=== PATIENT | male | born 1965 | race Caucasian/White ===

== ENCOUNTER 2025-01-04 03:59 | Emergency (ER) | payer OTHER ==
[~2025-01-04] VITALS: Ht 180.3 cm; Wt 102.1 kg
--- NOTE | 2025-01-04 04:22 | ERN ---
General Chief Complaint: Elbow Problem Stated Complaint: RT ELBOW PAIN, PMH GOUT Time Seen by MD: 04:03 History of Present Illness Initial Comments 59-year-old male with a history of hypertension and hypercholesterolemia comes in with an extremely tender erythematous and warm right elbow. He has a history of gout. He states two days ago he was experiencing some gout and a prescription was sent to an [facility] pharmacy in [place] for him. He does not remember the specific medications that were prescribed. He did not crab picker his prescriptions but came here to [place] to visit family. Unfortunately he thinks he is experiencing a gouty flare in his right elbow. Allergies: Coded Allergies: ibuprofen (Unverified Allergy, Unknown, 01/04/25) Past Medical History Past Medical History: High Cholesterol, Hypertension, Other Medical History Other: GOUT Past Surgical History: Other Surgical History Other: RT HIP, LEFT KNEE Constitutional: (-) chills, (-) diaphoresis, (-) fever, (-) malaise, (-) weakness, (-) other documentation EENTM: (-) eye pain, (-) blurred vision, (-) tearing, (-) double vision, (-) ea r pain, (-) ear discharge, (-) nose pain, (-) nose congestion, (-) throat pain, (-) Throat swelling, (-) mouth pain, (-) tooth pain, (-) mouth swelling, (-) other documentation Respiratory: (-) cough, (-) orthopnea, (-) short of breath, (-) stridor, (-) wheezing, (-) other documentation Cardiovascular: (-) chest pain, (-) edema, (-) palpitations, (-) syncope, (-) dyspnea on exertion, (-) other documentation Gastrointestinal/Abdominal: (-) nausea, (-) vomiting, (-) diarrhea, (-) abdominal pain, (-) abdominal distention, (-) constipation, (-) rectal bleeding, (-) dark stool/melena, (-) other documentation Genitourinary: (-) penile discharge, (-) dysuria, (-) frequency, (-) hematuria, (-) pain, (-) other documentation Musculoskeletal: (-) Neck pain, (-) back pain, (-) Flank Pain, (-) joint pain, (-) joint swelling, (-) muscle pain, (-) muscle stiffness, (-) gout, (-) other documentation Skin: (-) laceration, (-) contusion, (-) abrasion, (-) abscess, (-) rash, (-) change in color, (-) change in hair, (-) change in nails, (-) diaphoresis, (-) dryness, (-) other documentation Physical Exam General Appearance: (+) mild distress Orientation: (+) alert, (+) oriented x 3 Head/Face Trauma: No Eye: bilateral eye normal inspection, bilateral eye PERRL, bilateral eye EOMI Ear, Nose, Throat: (+) hearing grossly normal, (+) normal ENT inspection, (+) moist mucous membraine Neck: (+) normal inspection, (+) supple, (+) full range of motion Respiratory: (+) chest non-tender, (+) lungs clear, (+) well ventilated Heart: (+) regular, (+) no gallop Vascular: (+) no edema, (+) normal peripheral pulse Gastrointestinal: (+) soft, (+) non-tender, (+) bowel sound present Extremities Comment Patient's right elbow is erythematous warm slightly swollen and very very tender. Distal neurovascular intact. Results Laboratory and Microbiology Lab and Micro Result Laboratory Tests Test 01/04/25 04:38 Uric Acid 9.7 mg/dL (2.6-7.2) H MDM Start my workup assuming that the patient is correct with his diagnosis. I have ordered plain films of his right elbow as well as a serum uric acid level. I have prescribed Kenalog, naproxen and colchicine. Patient plans to visit his [facility] pharmacy in the morning and crab picker his prescriptions there. For now I will work on getting his pain under control. Patient pain was severe enough that I gave him some IV morphine to control it. He is feeling fine now plain films of the right elbow are concerning for a possible faint olecranon fracture. Patient does not remember having any trauma to the elbow. There is a mature bruise in the antecubital fossa but it is non tender in that area which makes me think the bruise is not associated with any acute injury. We will put the patient's right arm in a sling and have him follow-up with his primary care doctor. ED Course Orders Procedure Category Date Status Time Elbow 2vws Rt RAD 01/04/25 Resulted 04:07 Triamcinolone Acet PHA 01/04/25 Complete 40mg/Ml 1ml (Kenalog 04:30 Colchicine 0.6mg Tab PHA 01/04/25 Complete (Colchicine 0.6mg T 04:30 Naproxen (Naprosyn) PHA 01/04/25 Complete 04:30 Uric Acid LAB 01/04/25 Complete 04:17 Morphine 4mg Syg PHA 01/04/25 In Process (Morphine 4mg Syg) 06:30 Current Medications Medications (Trade) Dose Ordered Sig/Barry Route PRN Reason Start Time Stop Time Status Last Admin Dose Admin Colchicine (COLCHicine 0.6mg TAB) 0.6 mg ONCE ONCE PO 01/04/25 04:30 01/04/25 04:31 DC 01/04/25 04:43 Morphine Sulfate (morPHINE 4MG SYG) 2 mg ONCE ONCE IVP 01/04/25 06:30 01/04/25 06:31 DC 01/04/25 06:14 Naproxen (Naprosyn) 250 mg ONCE ONCE PO 01/04/25 04:30 01/04/25 04:31 DC 01/04/25 04:43 Triamcinolone Acetonide (Kenalog 40) 40 mg ONCE ONCE IM 01/04/25 04:30 01/04/25 04:31 DC 01/04/25 04:42 Vital Signs Date Time Temp Pulse Resp B/P (MAP) Pulse Ox O2 Delivery O2 Flow Rate FiO2 01/04/25 05:17 97.2 90 20 150/69 99 Room Air* 0 21 01/04/25 04:00 96.6 97 20 157/96 99 Room Air DX & DISP Disposition: Discharge Departure Impression: Primary Impression: Gout of elbow Condition: Stable Scripts Oxycodone HCl/Acetaminophen (Oxycodone-Acetaminophen 10-325) 10 Mg-325 Mg Tablet 1 TAB PO TIDP PRN for pain for 3 Days, #12 TAB 0 Refills Prov: SHIVAM ROBLERO MD 01/04/25 Additional Instructions: Your right elbow seems to be suffering from a gout flare. Are plain film shows a possible possible olecranon fracture that is minimally displaced. In the absence of trauma I tend to favor the gout diagnosis. In either case you need to follow-up with her primary care physician regarding this so that they can get a CT scan or a referral to an orthopedic surgeon for the possible fracture. I have sent a prescription for some oxycodone to an [facility] pharmacy for you to help control your pain for the next few days until you can meet with your primary care physician. The pharmacy that has the prescription is the [facility]. At [address] [place] [address] in [place]. SHIVAM ROBLERO MD Jan 04, 2025 04:22
[2025-01-04] MEDS: TRIAMCINOLONE ACETONIDE 40 MG/ML 1ML VIAL IM ONE (04:42)
[2025-01-04] MEDS: NAPROXEN 250 MG TAB PO ONE (04:43)
--- NOTE | 2025-01-04 06:18 | HMCIMG ---
EXAM: CR Right Elbow, 3 views. CLINICAL HISTORY: Gout. COMPARISON: None provided. FINDINGS: Faint lucency involving the capitellum of the humerus is concerning for a nondisplaced fracture. Mild joint effusion with elevation of the anterior and posterior fat pad. Enthesophyte at the site of attachment of the triceps tendon on the olecranon process of the ulna. No aggressive appearing osseous lesion. Joint spaces are within normal limits. The soft tissues are unremarkable. IMPRESSION: Faint lucency involving the capitellum of the humerus is concerning for a nondisplaced fracture. Mild joint effusion with elevation of the anterior and posterior fat pad. Enthesophyte at the site of attachment of the triceps tendon on the olecranon process of the ulna. /[place]
[2025-01-04] MEDS ORDERED: OXYC1TAB12 PO (06:39)
--- NOTE | 2025-01-04 06:45 | NUR ---
SLING APPLIED TO RIGHT ARM ORDERED
[2025-01-04 06:51] VITALS: BP 146/68; PULSE 86; RESP 18; TEMP 97.6; O2SAT 99
== END 2025-01-04 06:52 | disposition home or self-care (01) ==
LOC: EDH 03:59
DX: M10.9 Gout, unspecified (principal); E78.00 Pure hypercholesterolemia, unspecified; I10 Essential (primary) hypertension; Z88.6 Allergy status to analgesic agent; Z98.890 Other specified postprocedural states
CPT/HCPCS: 99284; 96374; 84550; 36415; 73070; 96372; J2270; J3301